=== PATIENT | male | born 1975 | race Caucasian/White ===

== ENCOUNTER 2019-11-06 18:57 | Emergency (ER) | payer OTHER, SELFPAY ==
[2019-11-06 18:58] VITALS: BP 138/87; PULSE 75; RESP 16; TEMP 36.2; O2SAT 100
[2019-11-06 18:59] VITALS: BP 138/87; PULSE 63; RESP 16; TEMP 36.2; O2SAT 100; BMI 25.7
--- NOTE | 2019-11-06 19:17 | ED.DCSUM_ITS ---
History of Present Illness Chief Complaint: Laceration Informant: Patient Narrative: Patient is a 44-year-old previously healthy male who [facility] for [facility]eration to left forearm. He states that he was up on a ladder whenever it started to fall. His arm got caught on a piece of aluminum. Bleeding has been controlled prior to arrival in the ED. He denies hitting his head or losing consciousness. Denies any other injury except for a small skin abrasion to his left pinky finger as well as his left lucio. He has been able to ambulate without difficulty. Denies any loss of sensation in the hand or forearm. Denies any loss of muscle strength. He is not sure when his last tetanus shot was. Past Medical History - Allergies and Home Meds Allergies/Adverse Reactions: Allergies erythromycin base [From [facility] Adverse Reaction (Verified 11/06/19 19:01) Upset Stomach Primary Care Physician: Corie Feliciano [facility] [employer] TECHNICIAN, [facility] TECHN[facility] [Primary Care Provider] - 7 Days for suture removal Prior records reviewed: Yes Past Medical History: None Smoking Status: Never smoker Review of Systems All systems negative except as indicated General: Denies: Chills, Fever, Sweats Eyes: Denies: Visual changes - bilaterally, Diplopia Cardiovascular: Denies: Chest pain, Palpitations Respiratory: Denies: Dyspnea, Cough Gastrointestinal: Denies: Abdominal pain, Nausea, Vomiting Musculoskeletal: Denies: Back pain, Swelling, Extremity Pain Skin: Reports: Abrasions, Wounds. Denies: Rash Neurological: Denies: Headache, Weakness, Numbness Hematologic: Denies: Easy bruising, Easy bleeding Physical Exam Vital Signs/Narrative: Vital Signs Temp Pulse Resp BP Pulse Ox 11/06/19 18:59 97.2 F L 63 16 138/87 H 100 11/06/19 18:58 97.2 F L 75 16 138/87 H 100 Inital Vital Signs reviewed: Yes General: Well nourished, Well developed, No Acute Distress Head: Normocephalic, Atraumatic Eyes: Perrl, EOMI ENT: Moist mucous membranes, No rhinorrhea Neck: Supple, Nontender Cardiovascular: Regular rate, Regular rhythm, No murmurs Respiratory: No distress, CTA bilaterally, Chest nontender Abdomen: Soft, Nontender, Nondistended, Normal bowel sounds Back: Nontender, Normal Inspection Extremities: Nontender, No edema Skin: Normal color, No rash, Trauma - 5 cm linear laceration to ulnar aspect of left forearm. No active bleeding. He is neurovascularly intact. Neurological: Alert, Oriented x3, Cranial nerves II-XII grossly intact, Normal Strength, Normal Sensation Psychological: Normal affect, Normal Mood Diagnostic/Tx/Re-eval - Medical Decision Making Patient presents to the ED for laceration to left forearm. Neurovascular intact. Will update on tetanus shot. Procedures Procedure(s): Laceration repair: Informed consent was obtained before procedure started. The appropriate timeout was taken. The area was prepped and draped in the usual sterile fashion. Local anesthesia was achieved using 5cc of lidocaine 1% with epinephrine. The wound was copiously irrigated. 8 5-0 Ethilon simple interrupted sutures were placed. A dressing was applied to the area and anticipatory guidance, as well as standard post procedure care, was explained. Return precautions are given. The patient tolerated the procedure well without any apparent complications. Follow-up visit set for suture removal and evaluation of laceration. ED Disposition - Plan for ED Patient: Disposition: Home or Assisted Living Diagnosis: Arm laceration Instructions: ED Laceration All Closures Referrals: Corie Feliciano NP, [facility] TECHN[facility] [Primary Care Provider] - 7 Days for suture removal
[2019-11-06] MEDS: Diphth,Pertuss(Acell),Tet Vac 0.5 ML Vial IM (19:19)
== END 2019-11-06 20:05 | disposition home or self-care (01) ==
PROVIDERS: Emergency Provider Emergency Medicine; PCP Nurse Practitioner Primary Care
DX: S51.812A Laceration without foreign body of left forearm, initial encounter (principal); Z23 Encounter for immunization; W11.XXXA Fall on and from ladder, initial encounter; Y93.89 Activity, other specified; Y92.89 Other specified places as the place of occurrence of the external cause; Y99.8 Other external cause status
CPT/HCPCS: 12002; 90471; 90715; 99282